=== PATIENT | male | born 1955 | race Caucasian/White ===

== ENCOUNTER 2022-08-05 12:39 | Emergency (ER) | payer BC ==
[2022-08-05 13:01] VITALS: BP 142/83; PULSE 81; RESP 16; TEMP 98.2; BMI 26.5
== END 2022-08-05 14:20 | disposition home or self-care (01) ==
LOC: FER 12:39
DX: S50.11XA Contusion of right forearm, initial encounter (principal); S54.21XA Injury of radial nerve at forearm level, right arm, initial encounter; W23.1XXA Caught, crushed, jammed, or pinched between stationary objects, initial encounter
CPT/HCPCS: 73090-TC-RT-FY; 93971; 99284-25